=== PATIENT | male | born 1975 | race Two or more races ===

== ENCOUNTER 2019-06-09 12:31 | Emergency (ER) | payer MEDICAID ==
[~2019-06-09] VITALS: Ht 167.6 cm; Wt 81.6 kg
[2019-06-09] MEDS ORDERED: UNOBMED (12:43)
[2019-06-09 12:45] VITALS: BP 127/82
[2019-06-09] MEDS ORDERED: Ketorolac 30mg Inj IV ONE (12:45)
--- NOTE | 2019-06-09 12:45 | NUR ---
ED Nurse Note: Patient brought in by [facility] from the [facility] c/o ETOH, at timeof arrival patient is nonverbal and is altered, patient does reek of alcohol, eyes PERRLA, patient is nonverbal, patient presents with an IV 18 gauge on the left hand that was starterd prior to arrival, IV started by nursing staff on patietns right AC, Airway maintedm siderails up and bed in the lowest position, obtained a blood glucose of 104. CHRISTIE Saenz notified and aware, will continue to monitor patient
--- NOTE | 2019-06-09 13:00 | NUR ---
HAND-OFF: Report given to KITTY Rivera.
[2019-06-09 13:25] LABS: BASOPHILS % (AUTO) 1.4 % (0.0-2.0); EOSINOPHILS % (AUTO) 2.3 % (0.0-3.0); HEMATOCRIT 42.4 % (42.0-52.0); LYMPHOCYTES % (AUTO) 30.1 % (20.0-45.0); MEAN CORPUSCULAR VOLUME 86 FL (80-99); MONOCYTES % (AUTO) 6.2 % (1.0-10.0); PLATELET COUNT 254 K/UL (150-450); RED CELL DISTRIBUTION WIDTH 11.8 % (11.6-14.8); WHITE BLOOD COUNT 9.6 K/UL (4.8-10.8)
[2019-06-09 13:35] LABS: ANION GAP 15 mmol/L (5-15); BLOOD UREA NITROGEN 14 mg/dL (7-18); CALCIUM 8.8 MG/DL (8.5-10.1); CARBON DIOXIDE 22 MMOL/L (21-32); CHLORIDE 104 MMOL/L (98-107); CREATININE 1.1 MG/DL (0.55-1.30); POTASSIUM 3.5 MMOL/L (3.5-5.1); SODIUM 141 MMOL/L (136-145)
[2019-06-09 13:45] LABS: ALANINE AMINOTRANSFERASE 162 U/L (12-78); ALBUMIN 3.5 G/DL (3.4-5.0); ALBUMIN/GLOBULIN RATIO 0.8 (1.0-2.7); ALKALINE PHOSPHATASE 167 U/L (46-116); ASPARTATE AMINO TRANSFERASE 80 U/L (15-37); BILIRUBIN,TOTAL 0.3 MG/DL (0.2-1.0); CREATINE KINASE 283 U/L (26-308)
--- NOTE | 2019-06-09 14:08 | NUR ---
ED Nurse Note:pt. pulled out his IV line
[2019-06-09 14:54] LABS: APPEARANCE,URINE CLEAR; BILIRUBIN, URINE NEGATIVE (NEGATIVE); COLOR,URINE PALE YELLOW; GLUCOSE, URINE (UA) NEGATIVE (NEGATIVE); KETONES,URINE NEGATIVE (NEGATIVE); LEUKOCYTE ESTERASE ,URINE NEGATIVE (NEGATIVE); NITRITE,URINE NEGATIVE (NEGATIVE); PH,URINE 5 (4.5-8.0); PROTEIN,URINE NEGATIVE (NEGATIVE); UROBILINOGEN,URINE NORMAL MG/DL (0.0-1.0)
--- NOTE | 2019-06-09 16:04 | NUR ---
ED Nurse Note:pt. is awake and A/Ox3 ambulatory with steady gait and wants to go home, IV line was removed
--- NOTE | 2019-06-09 16:07 | Emergency Room Report ---
History of Present Illness General Chief Complaint: Altered Mental Status Source: EMS Present Illness HPI 44-year-old male with unknown past medical history brought in by paramedics due to altered level of consciousness secondary to alcohol intoxication. Patient vital signs are within normal limits patient is nonverbal arrival and is sleeping. After given fluid patient wakes up and communicate however does not seem to sober. Patient denies any pain upon waking up patient is a poor historian as he is still under the influence of alcohol. Blood alcohol level is 300 however patient starts walking around communicating giving us his home address and asking for a taxi even though does not appear sober enough to leave. Patient understands the consequences of leaving not sober. Patient insists on leaving. Start taking his IV out. Start asking for food and having oral hydration. Since patient still under the influence of alcohol he could not have him sign AGAINST MEDICAL ADVICE as he was not a full judgment. According to the paramedics he was wobbling on the street did not fall or injure himself and no signs of head trauma are noted patient denies any headache when he wakes up Allergies: Coded Allergies: No Known Allergies (Unverified , 06/09/19) Patient History Past Medical History: see triage record Past Surgical History: unable to obtain Pertinent Family History: unable to obtain Social History: Reports: alcohol use Immunizations: UTD Reviewed Nursing Documentation: PMH: Agreed; PSxH: Agreed Nursing Documentation-PMH Past Medical History Deferred: Pt Cognitively Impaired Past Medical History: Deferred Review of Systems All Other Systems: negative except mentioned in HPI Physical Exam Vital Signs Date Time Temp Pulse Resp B/P (MAP) Pulse Ox O2 Delivery O2 Flow Rate FiO2 06/09/19 12:39 97.0 80 16 127/82 (97) 96 Room Air Sp02 EP Interpretation: normal General Appearance: other - Intoxicated and disheveled Head: normocephalic, atraumatic Eyes: bilateral eye normal inspection, bilateral eye PERRL ENT: hearing grossly normal, normal pharynx, no angioedema, normal voice Neck: full range of motion, supple/symm/no masses Respiratory: chest non-tender, lungs clear, normal breath sounds, no rhonchi, no respiratory distress, no wheezing, speaking full sentences Cardiovascular #1: regular rate, rhythm, no edema, no JVD, no murmur, normal capillary refill Cardiovascular #2: 2+ radial (R), 2+ radial (L) Gastrointestinal: normal bowel sounds, non tender, soft, non-distended, no guarding, no rebound Genitourinary: normal inspection, no CVA tenderness Musculoskeletal: back normal, gait/station normal, normal range of motion, non- tender, no calf tenderness Neurologic: alert, oriented x3, responsive, motor strength/tone normal, sensory intact, speech normal Psychiatric: other - Intoxicated Skin: no rash Lymphatic: normal inspection Medical Decision Making PA Attestation All my diagnosis and treatment plans were reviewed ad discussed with my supervising physician Dr. Suarez Diagnostic Impression: Primary Impression: Alcohol abuse ER Course 44-year-old male with unknown past medical history brought in by paramedics due to altered level of consciousness secondary to alcohol intoxication. Patient vital signs are within normal limits patient is nonverbal arrival and is sleeping. After given fluid patient wakes up and communicate however does not seem to sober. Patient denies any pain upon waking up patient is a poor historian as he is still under the influence of alcohol. Blood alcohol level is 300 however patient starts walking around communicating giving us his home address and asking for a taxi even though does not appear sober enough to leave. Patient understands the consequences of leaving not sober. Patient insists on leaving. Start taking his IV out. Start asking for food and having oral hydration. Since patient still under the influence of alcohol he could not have him sign AGAINST MEDICAL ADVICE as he was not a full judgment. According to the paramedics he was wobbling on the street did not fall or injure himself and no signs of head trauma are noted patient denies any headache when he wakes up Ddx considered but are not limited to: generalized anxiety disorder, panic attack, depression with psychotic feature, bipolar disorder, drug overdose, alcohol abuse Vital signs: are WNL, pt. is afebrile H&PE are most consistent with: Alcohol abuse ORDERS: CBC, CMP, CK, UA, tox screen, ED INTERVENTIONS: NS bolus, Zofran, Toradol DISCHARGE: At this time pt. is stable for d/c to home. Will provide printed patient care instructions, and any necessary prescriptions. Care plan and follow up instructions have been discussed with the patient prior to discharge. Patient was stable at time of discharge however started vomiting being anxious to leave give us address to go to call a taxi and patient was transported. EKG Diagnostic Results Rate: normal Rhythm: NSR ST Segments: no acute changes Other Impression No acute ST changes Last Vital Signs Date Time Temp Pulse Resp B/P (MAP) Pulse Ox O2 Delivery O2 Flow Rate FiO2 06/09/19 14:01 97.0 06/09/19 12:45 86 16 127/82 96 Room Air Disposition: HOME, SELF-CARE Condition: Stable Referrals: NOT CHOSEN IPA/MD,REFERRING (PCP) Patient Instructions: Alcohol Abuse and Nutrition Additional Instructions: Avoid drinking alcohol increase oral hydration Letty Toussaint Jun 09, 2019 16:07
--- NOTE | 2019-06-09 16:10 | NUR ---
ED Nurse Note:pt. was cleared for d/c by ER PA, he is walking with steady gait left ER without signing D/C instructions,
[2019-06-09 16:13] VITALS: BP 127/82
--- NOTE | 2019-06-12 11:44 | Cardiology Report ---
APPROVED REPORT EKG Measurement Heart [id number] Normal sinus rhythm Normal ECG
== END 2019-06-09 16:20 | disposition home or self-care (01) ==
LOC: EDBD 12:31 → EMR 13:00
DX: F10.10 Alcohol abuse, uncomplicated (principal)
CPT/HCPCS: 36415; 80053; 80307; 80329; 81001; 82550; 83690; 85025; 93005; 96361; 96374; 96375; J1885; J2405; Z7502; 99284